=== PATIENT | male | born 1995 | race Caucasian/White ===

== ENCOUNTER 2019-10-15 00:21 | Inpatient (IN) ==
[2019-10-15 03:01] LABS: ABS Basophils 0.1 10^3/ul (0-0.2); ABS Eosinophils 0.2 10^3/ul (0-0.6); ABS Lymphocytes 3.1 10^3/ul (1.0-4.8); ABS Monocytes 0.4 10^3/ul (0-0.8); Eosinophil % 1.8 %; Hematocrit 46 % (42-52); Hemoglobin 15.7 g/dL (14.0-18.0); Lymphocyte % 24.1 %; Mean Corpuscular HGB Conc 34 g/dL (31-36); Mean Corpuscular Hemoglobin 33 pg (27-31); Mean Corpuscular Volume 96 fL (80-94); Mean Platelet Volume 9.4 fL (7.4-10.4); Nucleated Red Blood Cells % 0.1; Platelet Count 269 10^3/uL (150-450); Red Blood Count 4.78 10^6 /uL (4.18-5.48); Red Cell Distribution Width 14 % (10-15); White Blood Count 12.7 10^3/uL (3.5-10.8)
[2019-10-15 03:02] LABS: Urine Appearance Clear; Urine Bilirubin Negative (Negative); Urine Blood Negative (Negative); Urine Color Straw; Urine Glucose Negative (Negative); Urine Ketones Negative (Negative); Urine Nitrite Negative (Negative); Urine Protein Negative (Negative); Urine Specific Gravity 1.002 (1.010-1.030); Urine Urobilinogen Negative (Negative)
[2019-10-15 03:40] LABS: Albumin 4.4 g/dL (3.2-5.2); Albumin/Globulin Ratio 1.3 (1-3); BUN/Creatinine Ratio 8.8 (8-20); EGFR African American 142.5 (>60); EGFR Non-African American 117.8 (>60); Globulin 3.3 g/dL (2-4); Total Bilirubin 0.3 mg/dL (0.2-1.0); Total Protein 7.7 g/dL (6.4-8.9); Urine Benzodiazepine Screen None Detected (None Detect); Urine Opiates Screen None Detected (None Detect)
[2019-10-15] MEDS ORDERED: Al Hydrox/Mg Hydrox/Simet LIQ 30 ML UDC PO PRN (15:25)
[2019-10-15] MEDS ORDERED: LORazepam 1 mg TAB (*) PO SCH (16:00)
[2019-10-15] MEDS: Nicotine PATCH 14 MG/24 HR PATCH TRANSDERM SCH (17:29)
[2019-10-15] MEDS: Multivitamins/Minerals TAB PO SCH (17:30)
[2019-10-16 08:07] LABS: HDL Cholesterol 63.9 mg/dL
[2019-10-16] MEDS: Nicotine PATCH 14 MG/24 HR PATCH TRANSDERM SCH (08:18)
[2019-10-16] MEDS: Multivitamins/Minerals TAB PO SCH (08:20)
[2019-10-16] MEDS ORDERED: Nicotine GUM 4MG FRUIT FLAVOR PO PRN (11:51)
[2019-10-17] MEDS: Nicotine PATCH 14 MG/24 HR PATCH TRANSDERM SCH ×2 (05:18→10:38)
[2019-10-17] MEDS: Multivitamins/Minerals TAB PO SCH (10:37)
[2019-10-17 10:40] VITALS: BP 115/71
== END 2019-10-17 17:20 | disposition home or self-care (01) | DRG 881 ==
LOC: ED 02:45 → BSU 16:07
PROVIDERS: ADMIT Psychiatry & Neurology Psychiatry; ATTEND Psychiatry & Neurology Psychiatry

== ENCOUNTER 2023-03-05 22:01 | Inpatient (IN) ==
[2023-03-05] MEDS ORDERED: Nicotine PATCH 21 MG/24 HR PATCH TRANSDERM ONE (23:15)
[2023-03-05 23:27] LABS: ABS Eosinophils 0.1 10^3/uL (0.0-0.5); ABS Lymphocytes 2.4 10^3/uL (1.0-4.8); ABS Monocytes 0.5 10^3/uL (0.0-1.1); ABS Neutrophils 10.8 10^3/uL (1.5-7.6); ABS Nucleated RBC 0.01 10^3/ul; Eosinophil % 0.6 %; Hematocrit 44.6 % (38-53); Hemoglobin 14.9 g/dL (13.2-16.3); Lymphocyte % 17.2 %; Mean Corpuscular Hemoglobin 32.8 pg (27-33); Mean Corpuscular Hgb Conc 33.4 g/dL (31-36); Mean Corpuscular Volume 98.2 fL (80-97); Nucleated Red Blood Cells % 0.1 %/100WBC (0.0-0.8); Platelet Count 197 10^3/uL (150-450); Red Blood Count 4.55 10^6/uL (4.06-5.63); Red Cell Distribution Width 14.3 % (12-17); White Blood Count 13.8 10^3/uL (3.6-10.2)
[2023-03-06 00:12] LABS: Blood Urea Nitrogen 8 mg/dL (6-24); CO2 Carbon Dioxide 25 mmol/L (22-32); Chloride 103 mmol/L (101-111); Creatinine, Serum 0.83 mg/dL (0.67-1.17); Glucose 123 mg/dL (70-100); Sodium 142 mmol/L (135-145); eGFR CKD-EPI 122.3 (>60)
[2023-03-06 00:13] LABS: ALT 66 U/L (7-52); Albumin 4.6 g/dL (3.2-5.2); Albumin/Globulin Ratio 1.5 (1-3); Alkaline Phosphatase 85 U/L (35-149); Globulin 3.1 g/dL (2-4); Total Bilirubin 0.4 mg/dL (0.2-1.0); Total Protein 7.7 g/dL (6.4-8.9)
[2023-03-06 00:17] LABS: Acetaminophen < 15 mcg/mL; Alcohol, S 341 mg/dL (<13); Salicylate < 2.50 mg/dL (<30)
[2023-03-06 00:49] LABS: AST 69 U/L (13-39); Anion Gap 14 mmol/L (2-16); Potassium 4.1 mmol/L (3.5-5.0)
[2023-03-06 04:03] LABS: Urine Appearance Clear; Urine Bilirubin Negative (Negative); Urine Blood Negative (Negative); Urine Color Yellow; Urine Glucose Negative (Negative); Urine Ketones Negative (Negative); Urine Nitrite Negative (Negative); Urine Protein Negative (Negative); Urine Specific Gravity 1.015 (1.002-1.030); Urine Urobilinogen Negative (Negative)
[2023-03-06 04:05] LABS: Urine Bacteria Absent (Absent); Urine Red Blood Cell Absent (Absent); Urine White Blood Cell Trace(0-5/hpf) (Absent)
[2023-03-06 04:45] LABS: Urine Benzodiazepine Screen None Detected (None Detect); Urine Cannabinoids Screen Presumptive Positive (None Detect); Urine Opiates Screen None Detected (None Detect)
[2023-03-06] MEDS: Nicotine GUM 4MG FRUIT FLAVOR PO PRN ×5 (11:04→22:21)
[2023-03-06] MEDS ORDERED: Al Hydrox/Mg Hydrox/Simet LIQ 30 ML UDC PO PRN (12:53)
[2023-03-06] MEDS: Multivitamins/Minerals TAB PO SCH (13:51)
[2023-03-06 15:16] LABS: HIV 4th Generation Nonreactive (Nonreactive)
[2023-03-07 08:22] LABS: HDL Cholesterol 106.5 mg/dL
[2023-03-07] MEDS: Nicotine GUM 4MG FRUIT FLAVOR PO PRN ×5 (08:38→20:21)
[2023-03-07] MEDS: Multivitamins/Minerals TAB PO SCH (11:16)
[2023-03-07] MEDS: Nicotine PATCH 21 MG/24 HR PATCH TRANSDERM SCH (12:00)
[2023-03-07] MEDS ORDERED: Nicotine PATCH 21 MG/24 HR PATCH ONE (12:35)
[2023-03-08] MEDS: Multivitamins/Minerals TAB PO SCH (08:41)
[2023-03-08] MEDS: Nicotine PATCH 21 MG/24 HR PATCH TRANSDERM SCH (08:42)
[2023-03-08] MEDS: Nicotine GUM 4MG FRUIT FLAVOR PO PRN ×2 (08:43→10:55)
[2023-03-08 09:01] VITALS: BP 129/85
[2023-03-08 11:14] LABS: Chlamydia trachomatis NAA Negative (Negative); Neisseria gonorrhoeae (GC) NAA Negative (Negative)
== END 2023-03-08 12:35 | disposition home or self-care (01) | DRG 897 ==
LOC: ED 22:01 → EDHOLD 03-06 12:53 → BSU 03-06 13:21
PROVIDERS: ADMIT Psychiatry & Neurology Psychiatry; ATTEND Student in an Organized Health Care Education/Training Program